=== PATIENT | female | born 1975 | race Caucasian/White ===

== ENCOUNTER 2018-08-20 11:35 | Emergency (ER) | payer OTHER ==
[~2018-08-20] VITALS: Ht 154.9 cm; Wt 77.3 kg
[2018-08-20] MEDS ORDERED: VITA1CAP25 PO (11:44)
--- NOTE | 2018-08-20 12:12 | REP ---
RIGHT FINGERS, FOUR VIEWS: HISTORY: Trauma. There is no acute fracture or dislocation. The joint spaces are normal in appearance. IMPRESSION: There is no acute fracture or dislocation. Electronically Signed by Matthieu Noriega MD 08/20/2018 12:13 P
[2018-08-20] MEDS ORDERED: LIDOCAINE 2% MDV 20 ML VIAL SC ONE (12:30)
[2018-08-20 13:12] VITALS: BP 130/82
== END 2018-08-20 13:20 | disposition home or self-care (01) ==
LOC: M ED 11:35
DX: S61.210A Laceration without foreign body of right index finger without damage to nail, initial encounter (principal); W23.1XXA Caught, crushed, jammed, or pinched between stationary objects, initial encounter; Y92.29 Other specified public building as the place of occurrence of the external cause

== ENCOUNTER 2018-08-28 12:19 | Emergency (ER) | payer OTHER ==
[~2018-08-28] VITALS: Ht 154.9 cm; Wt 77.3 kg
[~2018-08-28 12:19] MED LIST: VITA1CAP25 PO
[2018-08-28 12:20] VITALS: BP 149/67
[2018-08-28] MEDS ORDERED: IBUP80TA PO (12:29)
[2018-08-28] MEDS ORDERED: BACT800T5 PO (14:07)
[2018-08-28] MEDS ORDERED: BACTRIM 160MG/800MG DS TAB PO ONE (14:15)
== END 2018-08-28 14:17 | disposition home or self-care (01) ==
LOC: M ED 12:19
DX: L08.9 Local infection of the skin and subcutaneous tissue, unspecified (principal); M25.541 Pain in joints of right hand; Z79.899 Other long term (current) drug therapy

== ENCOUNTER 2018-09-03 13:30 | Emergency (ER) | payer OTHER ==
[~2018-09-03] VITALS: Ht 154.9 cm; Wt 77.3 kg
[~2018-09-03 13:30] MED LIST changes: +BACT800T5 PO; +IBUP80TA PO
[2018-09-03 13:31] VITALS: BP 144/74
== END 2018-09-03 14:10 | disposition home or self-care (01) ==
LOC: M ED 13:30
DX: Z48.02 Encounter for removal of sutures (principal); E55.9 Vitamin D deficiency, unspecified